=== PATIENT | male | born 1945 | race Caucasian/White ===

== ENCOUNTER 2016-10-23 10:22 | Day surgery (SDC) | payer OTHER ==
[~2016-10-23] VITALS: Ht 175.3 cm; Wt 110.0 kg
[~2016-10-23 10:22] MED LIST: 0.9% Sodium Chloride 1,000 ML IV SCH; ASPI-973 PO; ATEN100T PO; ATEN50TA PO; BUPR150T8 PO; IBUP200C PO; LEVO300T2 PO; LOVA40TA PO; OMEP20CA11 PO; Sodium Chloride LOK Flush 10 mL Syringe IV PRN; TRIA1TAB5 PO; fentaNYL-PF 50 mCg/mL 2 mL Inj IVPUSH PRN
[2016-10-23] MEDS ORDERED: CHLO50TA PO (10:46)
[2016-10-23] MEDS ORDERED: AMLO10TA3 PO (10:46)
[2016-10-23] MEDS ORDERED: FOLI0.4T2 PO (10:46)
[2016-10-23] MEDS ORDERED: VIT1CAPS8 PO (10:46)
[2016-10-23] MEDS ORDERED: MULT-666 PO (10:46)
[2016-10-23] MEDS ORDERED: ASCO-294 PO (10:46)
[2016-10-23] MEDS ORDERED: RIBO25TA PO (10:46)
[2016-10-23] MEDS ORDERED: HYDR-3605 PO (10:46)
[2016-10-23] MEDS ORDERED: METO50TA3 PO (10:46)
[2016-10-23] MEDS ORDERED: CHOL200047 PO (10:46)
[2016-10-23] MEDS ORDERED: CALC600T12 PO (10:46)
[2016-10-23] MEDS ORDERED: ASCO500S2 PO (10:46)
[2016-10-23] MEDS ORDERED: COD1CAPS16 PO (10:46)
[2016-10-23 11:02] VITALS: BP 146/69; PULSE 60; RESP 14; O2SAT 97
[2016-10-23 12:20] VITALS: BP 140/67; PULSE 49; RESP 12; O2SAT 93
[2016-10-23 12:30] VITALS: BP 124/67; PULSE 50; RESP 14; O2SAT 94
[2016-10-23 12:35] VITALS: BP 159/80; PULSE 60; RESP 12; O2SAT 97
--- NOTE | 2016-10-23 13:43 | ENDO ---
[address] [address] ENDOSCOPY PROCEDURE PATIENT: THERON VILLEDA : 1945 MR#: [id number] ADMIT: 10/23/2016 JOB ID: [id number] DATE: 10/23/2016 PROCEDURE: Colonoscopy. INDICATION: The patient with a personal history of colon polyps. Patient previously had a colonoscopy that revealed a serrated adenoma back in August of 2007. The patient's ASA classification is 2. Mallampati score is 2. INSTRUMENT USED: PCF H 190 DL. PREPARATION QUALITY: Was fair. PROCEDURE DETAILS: After informed consent was obtained, the patient was brought into the GI suite, where he was placed on oxygen via nasal cannula and monitored with continuous pulse oximeter, telemetry and blood pressure monitoring. A time-out was performed. Then, he was placed in the left lateral decubitus position and medications were administered for sedation. Digital rectal examination with palpation of the prostate was performed, which was unremarkable. The colonoscope was then inserted into the rectum and advanced under direct visualization to the cecum, which was identified by the presence of the ileocecal valve and appendiceal orifice. The cecum was reached, the colonoscope was withdrawn back into the rectum as the mucosa and lumen were examined. In the rectum, retroflexion was performed. Following retroflexion, remaining air in the rectum was suctioned, and procedure was completed. FINDINGS: Internal hemorrhoids were noted as the colonoscope was withdrawn through the anal canal. But otherwise, normal examination from rectum to cecum. IMPRESSION: Internal hemorrhoids. RECOMMENDATIONS: Repeat colonoscopy in 10 years. COMPLICATIONS: None. ESTIMATED BLOOD LOSS: 0.
== END 2016-10-23 23:59 | disposition home or self-care (01) ==
LOC: END 10:22
PROVIDERS: ATTEND Internal Medicine Gastroenterology
DX: Z12.11 Encounter for screening for malignant neoplasm of colon (principal); Z86.010 Personal history of colon polyps; K64.8 Other hemorrhoids; I10 Essential (primary) hypertension; E78.5 Hyperlipidemia, unspecified; K21.9 Gastro-esophageal reflux disease without esophagitis; F43.10 Post-traumatic stress disorder, unspecified; Z79.82 Long term (current) use of aspirin
CPT/HCPCS: G0105; G0500; J2250; J3010; J7030